=== PATIENT | female | born 1945 | race Hispanic/Latino ===

== ENCOUNTER 2020-10-26 05:29 | Observation (INO) | payer MEDICARE, OTHER ==
[2020-10-23 11:27] LABS: BASOPHILS % 0.7 % (0.0-1.0); EOSINOPHILS # (AUTO) 0.1 (0.0-0.4); EOSINOPHILS % 1.4 % (0.0-6.0); HEMATOCRIT 43.6 % (34.2-44.1); HEMOGLOBIN 13.9 g/dL (12.0-16.0); LYMPHOCYTES # (AUTO) 1.2 (1.0-3.2); LYMPHOCYTES % 20.1 % (18.0-39.1); MEAN CORPUSCULAR HGB CONC 31.9 g/dL (31-35); MEAN CORPUSCULAR VOLUME 97.1 fL (81-99); MONOCYTES # (AUTO) 0.8 (0.2-0.8); MONOCYTES % 13.2 % (4.4-11.3); NEUTROPHILS # (AUTO) 3.8 (2.1-6.9); NEUTROPHILS % 64.4 % (38.7-80.0); PLATELET COUNT 289 x10e3/uL (140-360); RED BLOOD COUNT 4.49 x10e6/uL (3.6-5.1); RED CELL DISTRIBUTION WIDTH 14.6 % (11.7-14.4)
[2020-10-23 11:45] LABS: PROTHROMBIN TIME 13.8 seconds (11.9-14.5)
[2020-10-23 11:46] LABS: PARTIAL THROMBOPLASTIN TIME 27.3 seconds (23.8-35.5)
[2020-10-23 11:50] LABS: ANION GAP 16.7 mmol/L (8-16); BLOOD UREA NITROGEN 17 mg/dL (7-26); BUN/CREATININE RATIO 25 (6-25); CARBON DIOXIDE 27 mmol/L (22-29); CHLORIDE 105 mmol/L (98-107); CREATININE, SERUM 0.68 mg/dL (0.57-1.11); EST GLOMERULAR FILTRATION RATE > 60 ML/MIN (60-); GLUCOSE 96 mg/dL (74-118); POTASSIUM 4.7 mmol/L (3.5-5.1); SODIUM 144 mmol/L (136-145)
[~2020-10-26] VITALS: Ht 157.5 cm; Wt 49.9 kg
[~2020-10-26 05:29] MED LIST: ARAVA10 MG; MELATONIN3 MG PO; MOBIC7.5 MG; MULTI-VITAMIN1 EACH PO; VALTREX500 MG PO; VITAMIN D3 COM1 EACH PO
[2020-10-26] MEDS ORDERED: CEFAZOLIN SOD 1 GM/NS 50ML 100 ML IV ONE (06:27)
[2020-10-26] MEDS ORDERED: VANCOMYCIN HCL 1 GM VIAL ONE (06:45)
[2020-10-26] MEDS ORDERED: THROMBIN FOR SOLN 5,000 UNIT VIAL ONE (06:45)
[2020-10-26] MEDS ORDERED: LIDOCAINE 1% W/EPINEPHRINE 20 ML VIAL ONE (06:45)
[2020-10-26] MEDS ORDERED: ACETAMINOPHEN 1000 MG/100 ML 100 ML IV ONE (07:15)
[2020-10-26] MEDS ORDERED: LIDOCAINE HCL (LTA) 4 ML SOLN ONE (07:15)
[2020-10-26] MEDS ORDERED: IBUPROFEN 800MG/ 200ML 200 ML IV ONE (07:15)
[2020-10-26] MEDS ORDERED: SCOPOLAMINE 1.5 MG PATCH ONE (07:20)
[2020-10-26] MEDS ORDERED: CARISOPRODOL 350 MG TAB PO PRN (09:00)
[2020-10-26] MEDS ORDERED: OXYCODONE/ACETAMINOPHEN 5-325 1 EACH TABLET PO PRN (09:00)
[2020-10-26] MEDS ORDERED: ONDANSETRON HCL INJ 2MG/ML 2ML 2 MG/ML VIAL IV PRN (09:00)
[2020-10-26] MEDS ORDERED: PROMETHAZINE HCL (IM) 25 MG/ML VIAL IM PRN (09:00)
[2020-10-26] MEDS ORDERED: MORPHINE SULFATE 5 MG/ML VIAL IM PRN (09:00)
[2020-10-26] MEDS ORDERED: ACETAMINOPHEN 325 MG TAB PO PRN (09:00)
[2020-10-26] MEDS ORDERED: HYDROMORPHONE 2MG/ML 2 MG/ML ML IV PRN (09:00)
[2020-10-26] MEDS: LACTATED RINGER'S 1,000 ML IV SCH ×2 (09:00→17:20)
[2020-10-26] MEDS ORDERED: MAGNESIUM/ALUMINUM/SIMETHICONE 30 ML UDC PO PRN (09:00)
[2020-10-26] MEDS ORDERED: HYDROCODON-ACE1 EA12 PO (09:57)
[2020-10-26 10:53] VITALS: BP 155/86
[2020-10-26 10:58] VITALS: BP 155/86
[2020-10-26] MEDS ORDERED: DEXAMETHASONE SOD PHOS INJ 4 MG/ML VIAL ONE (12:24)
[2020-10-26] MEDS ORDERED: ONDANSETRON HCL INJ 2MG/ML 2ML 2 MG/ML VIAL ONE (12:24)
[2020-10-26] MEDS ORDERED: NEOSTIGMINE 1 MG/ML 10ML VIAL ONE (12:24)
[2020-10-26] MEDS ORDERED: LIDOCAINE HCL 2% JELLY 5 ML TUBE ONE (12:24)
[2020-10-26] MEDS ORDERED: ROCURONIUM BROMIDE 10 MG/ML 5ML VIAL IV ONE (12:24)
[2020-10-26] MEDS ORDERED: GLYCOPYRROLATE INJ 0.2 MG/ML VIAL ONE (12:24)
[2020-10-26] MEDS ORDERED: SEVOFLURANE INHAL SOLN 250 ML PEN BTL ONE (12:24)
[2020-10-26] MEDS ORDERED: PROPOFOL IV EMULSION 10 MG/ML 20 ML VIAL ONE (12:24)
[2020-10-26] MEDS ORDERED: LIDOCAINE HCL 2% LOCAL INJ 5 ML SDV VIAL INJ ONE (12:24)
[2020-10-26 13:27] VITALS: BP 140/94
[2020-10-26] MEDS: CEFAZOLIN SOD 1 GM/NS 50ML 50 ML IV SCH (16:36)
[2020-10-26 16:47] VITALS: BP 150/88
[2020-10-26 19:48] VITALS: BP 143/82
[2020-10-26] MEDS ORDERED: ZOLPIDEM TARTRATE 5 MG TAB PO PRN (21:00)
[2020-10-27] VITALS: BP 144/72
[2020-10-27] MEDS: CEFAZOLIN SOD 1 GM/NS 50ML 50 ML IV SCH ×2 (00:22→08:39)
[2020-10-27] MEDS: LACTATED RINGER'S 1,000 ML IV SCH (00:23)
[2020-10-27 04:00] VITALS: BP 141/68
[2020-10-27 08:15] VITALS: BP 137/75
== END 2020-10-27 13:13 | disposition home health service (06) ==
LOC: OR 05:29 → PACU V 08:49 → MED/SURG 10:37
PROVIDERS: ADMIT Neurological Surgery; ATTEND Neurological Surgery
DX: M43.12 Spondylolisthesis, cervical region (principal); M06.9 Rheumatoid arthritis, unspecified; M81.0 Age-related osteoporosis without current pathological fracture; Z01.818 Encounter for other preprocedural examination
CPT/HCPCS: 20931; 22551; 22845; 36415; 71046; 72040; 76000; 80048; 85025; 85610; 85730; 86850; 86870; 86880; 86900; 86905; 88304; 93005; 99001; C1713 ×2; G0378 ×2; J0131; J0690 ×2; J3370; U0002; J1100; J2001; J2405; J2710